=== PATIENT | male | born 1965 | race Caucasian/White ===

== ENCOUNTER → 2021-04-11 | Day surgery (SDC) | payer MEDICARE ==
[~2021-04-11] MED LIST: AMLODIPINE BES2.5 MG PO; AMLODIPINE BESYL5 MG PO; CLONAZEPAM1 MG PO; HYDROCODON-ACE1 EAC2 PO; OMEGA-3 ACID ETH1 GM PO; SILDENAFIL20 MG PO; VENTOLIN HFA 66.7 GM INH; VITAMIN D21250 MCG PO
[2021-04-11 09:58] LABS: HEMOGLOBIN 15.5 gm/dl (14.0-17.5); RED BLOOD COUNT 5.25 M/UL (4.20-5.50); WHITE BLOOD COUNT 7.4 K/UL (4.5-11.0)
[2021-04-11 11:39] LABS: BUN/CREATININE RATIO 10 (0-10)
[2021-04-12 07:11] LABS: HBSAG SCREEN Negative (Negative); HEP A AB, IGM Negative (Negative); HEP B CORE AB, IGM Negative (Negative); HEP C VIRUS AB <0.1 (0.0-0.9)
[2021-04-12 13:14] LABS: MITOCHONDRIAL (M2) ANTIBODY <20.0 Units (0.0-20.0)
== END | disposition home or self-care (01) ==
LOC: OR 06:09
PROVIDERS: Internal Medicine Gastroenterology
DX: R94.5 Abnormal results of liver function studies (principal); Z12.11 Encounter for screening for malignant neoplasm of colon; D12.3 Benign neoplasm of transverse colon; K64.1 Second degree hemorrhoids; K74.60 Unspecified cirrhosis of liver; K75.81 Nonalcoholic steatohepatitis (NASH); I10 Essential (primary) hypertension; E66.9 Obesity, unspecified; F17.210 Nicotine dependence, cigarettes, uncomplicated; Z68.30 Body mass index [BMI] 30.0-30.9, adult; Z79.899 Other long term (current) drug therapy; Z88.1 Allergy status to other antibiotic agents; Z20.822 Contact with and (suspected) exposure to COVID-19; Z90.49 Acquired absence of other specified parts of digestive tract
CPT/HCPCS: 36415; 80048; 80074; 80076; 82103; 82728; 83540; 83550; 85027; 85610; 86038; J2704; J7040